=== PATIENT | female | born 1985 | race Caucasian/White ===

== ENCOUNTER → 2016-03-10 | Outpatient (REF) | payer OTHER, MEDICAID ==
[2016-03-10 11:35] LABS: BASO % 0.1 % (0.0-1.0); EOS % 1.1 % (0.0-3.0); LARGE UNSTAINED CELL # 0.1 K/mm3 (0.0-0.4); LARGE UNSTAINED CELL % 2.1 % (0.0-4.0); LYMPH # 1.2 K/mm3 (1.5-4.5); LYMPH % 25.8 % (24.0-44.0); MEAN CORPUSCULAR HEMOGLOBIN 31.2 pg (27.0-33.0); MEAN CORPUSCULAR HGB CONC 32.9 g/dl (32.0-36.5); MONO # 0.4 K/mm3 (0.0-0.8); MONO % 8.3 % (0.0-5.0); NEUTROPHILS # 2.9 K/mm3 (1.8-7.7); NEUTROPHILS % 62.6 % (36.0-66.0); PLATELET COUNT, AUTOMATED 204 k/mm3 (150-450); RED CELL DISTRIBUTION WIDTH 12.2 % (11.5-14.5); WHITE BLOOD COUNT 4.6 K/mm3 (4.0-10.0)
[2016-03-10 12:39] LABS: ERYTHROCYTE SEDIMENTATION RATE 8 mm/hr (0-20)
[2016-03-14 08:06] LABS: Lyme Disease IgG Ab 18 kDa Ban Absent (.); Lyme Disease IgG Ab 23 kDa Ban Present (.); Lyme Disease IgG Ab 28 kDa Ban Absent (.); Lyme Disease IgG Ab 30 kDa Ban Absent (.); Lyme Disease IgG Ab 39 kDa Ban Absent (.); Lyme Disease IgG Ab 41 kDa Ban Present (.); Lyme Disease IgG Ab 45 kDa Ban Absent (.); Lyme Disease IgG Ab 58 kDa Ban Absent (.); Lyme Disease IgG Ab 66 kDa Ban Absent (.); Lyme Disease IgG Ab 93 kDa Ban Absent (.); Lyme Disease IgG West Blot Int Negative (.); Lyme Disease IgG/IgM Antibodie 1.04 ISR (0.00-0.90); Lyme Disease IgM Ab 23 kDa Ban Present (.); Lyme Disease IgM Ab 39 kDa Ban Absent (.); Lyme Disease IgM Ab 41 kDa Ban Absent (.); Lyme Disease IgM Ab Quantitati <0.80 index (0.00-0.79); Lyme Disease IgM West Blot Int Negative (.)
== END ==
LOC: M LABDRAW1 11:09
PROVIDERS: ATTEND Orthopaedic Surgery
DX: M25.562 Pain in left knee (principal)

== ENCOUNTER → 2016-03-18 | Outpatient (CLI) | payer OTHER ==
--- NOTE | 2016-03-19 20:55 | REP ---
MRI of left knee 03/18/2016 Indication: Left knee pain for 2 months; exclude meniscal tear Comparison: None Technique: Sagittal, axial, coronal images were obtained of the left knee in multiple pulse sequences Findings: The medial and lateral patellar retinacula are intact. Small amount of focal chondromalacia patella is identified in the central aspect of the posterior patellar hyaline cartilage. The patellar and quadriceps tendons are intact. Anterior and posterior cruciate ligaments are intact. Medial and lateral collateral ligament complexes are intact. There are no visualized meniscal tears. There is no suprapatellar effusion, fracture or bone bruise. Impression 1. 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 2. No evidence of cruciate, medial or lateral collateral ligament tear. 3. No evidence of meniscal tear Signed by Grisel Souza MD 03/19/2016 08:47 P
== END ==
LOC: M RAD 11:20
PROVIDERS: ATTEND Orthopaedic Surgery
DX: M25.562 Pain in left knee (principal)

== ENCOUNTER → 2016-04-07 | Outpatient (REF) | payer OTHER | LOC: M SFHCPLAZ 10:48 | PROVIDERS: ATTEND Nurse Practitioner Family | DX: G40.B19 Juvenile myoclonic epilepsy, intractable, without status epilepticus (principal); E78.5 Hyperlipidemia, unspecified ==

== ENCOUNTER → 2016-04-10 | Outpatient (REF) | payer OTHER ==
[2016-04-10 12:38] LABS: BASO % 0.1 % (0.0-1.0); EOS % 0.4 % (0.0-3.0); LARGE UNSTAINED CELL # 0.1 K/mm3 (0.0-0.4); LARGE UNSTAINED CELL % 1.5 % (0.0-4.0); LYMPH # 1.1 K/mm3 (1.5-4.5); LYMPH % 26.3 % (24.0-44.0); MEAN CORPUSCULAR HEMOGLOBIN 31.5 pg (27.0-33.0); MEAN CORPUSCULAR HGB CONC 32.6 g/dl (32.0-36.5); MEAN CORPUSCULAR VOLUME 96.6 fl (80.0-96.0); MONO # 0.3 K/mm3 (0.0-0.8); MONO % 7.8 % (0.0-5.0); NEUTROPHILS # 2.4 K/mm3 (1.8-7.7); NEUTROPHILS % 63.9 % (36.0-66.0); PLATELET COUNT, AUTOMATED 192 k/mm3 (150-450); RED CELL DISTRIBUTION WIDTH 12.7 % (11.5-14.5); WHITE BLOOD COUNT 3.8 K/mm3 (4.0-10.0)
[2016-04-10 12:56] LABS: ALBUMIN 3.9 GM/DL (3.2-5.2); ALBUMIN/GLOBULIN RATIO 1.39 (1.00-1.93); ALKALINE PHOSPHATASE 106 U/L (45-117); ALT/SGPT 22 U/L (12-78); ANION GAP 8 MEQ/L (8-16); AST/SGOT 15 U/L (15-37); BILIRUBIN,TOTAL 0.3 MG/DL (0.2-1.0); BLOOD UREA NITROGEN 13 MG/DL (7-18); CALCIUM LEVEL 8.3 MG/DL (8.5-10.1); CARBON DIOXIDE LEVEL 25 MEQ/L (21-32); CHLORIDE LEVEL 111 MEQ/L (98-107); CHOLESTEROL LEVEL 333 MG/DL (<200); CREATININE FOR GFR 0.79 MG/DL (0.55-1.02); FREE T4 0.69 NG/DL (0.76-1.46); GLOMERULAR FILTRATION RATE > 60.0 (>60); GLUCOSE, FASTING 87 MG/DL (70-105); POTASSIUM SERUM 4.2 MEQ/L (3.5-5.1); SODIUM LEVEL 144 MEQ/L (136-145); TOTAL PROTEIN 6.7 GM/DL (6.4-8.2); TRIGLYCERIDES LEVEL 76 MG/DL (<150)
[2016-04-10 15:18] LABS: THYROID PEROXIDASE ANTIBODY < 28.0 U/ML (<60.0)
== END ==
LOC: M SFHCPLAZ 08:23
PROVIDERS: ATTEND Nurse Practitioner Family
DX: G40.B19 Juvenile myoclonic epilepsy, intractable, without status epilepticus (principal); E78.5 Hyperlipidemia, unspecified

== ENCOUNTER → 2016-05-18 | Outpatient (REF) | payer OTHER | LOC: M SFHCPLAZ 15:04 | PROVIDERS: ATTEND Nurse Practitioner Family | DX: R94.6 Abnormal results of thyroid function studies (principal); Z53.9 Procedure and treatment not carried out, unspecified reason ==

== ENCOUNTER → 2016-06-16 | Outpatient (REF) | payer OTHER ==
[2016-06-16 15:50] LABS: T UPTAKE 29 % (30-39); THYROID PEROXIDASE ANTIBODY < 28.0 U/ML (<60.0); THYROXINE (T4) 5.8 UG/DL (4.5-12.0)
== END ==
LOC: M SFHCPLAZ 13:58
PROVIDERS: ATTEND Nurse Practitioner Family
DX: R94.6 Abnormal results of thyroid function studies (principal)

== ENCOUNTER → 2016-07-18 | Outpatient (CLI) | payer OTHER ==
--- NOTE | 2016-07-18 12:06 | REP ---
Clinical: Abnormal thyroid function tests. Technique: Real time falcon scale and color evaluation using linear high frequency and curved array transducers. Findings: The thyroid gland is normal in contour, size, echogenicity, and shape. No significant nodule/mass or cystic changes are appreciated. Right lobe measures 4.4 x 1.6 x 1.2 cm. Left lobe measures 4.9 x 1.4 x 0.8 cm. Isthmus measures 1.3 mm in width. Impression: Normal thyroid ultrasound. Signed by Ignacio Cuellar MD 07/18/2016 11:58 A
== END ==
LOC: M RAD 10:58
PROVIDERS: ATTEND Nurse Practitioner Family
DX: R94.6 Abnormal results of thyroid function studies (principal)

== ENCOUNTER → 2016-10-27 | Outpatient (CLI) | payer OTHER ==
--- NOTE | 2016-10-27 12:14 | REP ---
LUMBAR SPINE COMPLETE: 10/27/2016. Comparison: two-view spine 08/05/2015. Clinical history: low back pain, sacral pain. Findings: Five views were provided. AP view shows pedicles, spinous and transverse processes intact. There is no scoliosis. SI joints, sacral ala and foramina symmetric. The lower thoracic vertebral levels and ribs included were unremarkable. That portion of the pelvic ring and iliac wings seen also unremarkable. The lateral view shows some loss of lordosis compared to the previous study, this may reflect some spasm. There is no spondylolysis or spondylolisthesis. There is no disc space narrowing or compression deformity at any level. Impression: 1. Some loss of lordosis noted that may reflect some spasm but no scoliosis, spondylolysis, spondylolisthesis, compression deformity or disc space narrowing. 2. SI joints symmetric and intact on this study. Signed by Sebastián Garcia MD 10/27/2016 05:18 P
--- NOTE | 2016-10-27 13:02 | REP ---
Sacrum and coccyx series: Three views. History: Sacral coccygeal disorders. Findings: Three views of the right sacrum and coccyx show no sacral abnormality. On lateral radiograph there is some kyphosis of the coccyx but this did not appear to be acute. Presacral soft tissues are not widened. SI joints are unremarkable. No bony destructive lesion is seen. Impression: No acute abnormality. Signed by Raz Lange MD 10/27/2016 01:56 P
== END ==
LOC: M RAD 11:22
PROVIDERS: ATTEND Nurse Practitioner Family
DX: M53.3 Sacrococcygeal disorders, not elsewhere classified (principal)

== ENCOUNTER → 2016-12-01 | Outpatient (CLI) | payer OTHER ==
--- NOTE | 2016-12-01 13:59 | REP ---
Renal ultrasound Center request: There are no comparisons. The kidneys are normal size. Right kidney measures 10.4 x 5.5 x 4.9 cm. Left kidney measures 9.9-6.0 x 5.2 cm. Renal cortical echogenicity is normal bilaterally. There is no hydronephrosis, calculus, mass or cyst on the right or left. Bladder ultrasound: The bladder is incompletely distended and cannot be further evaluated. Impression: Negative bilateral renal ultrasound. The bladder is nondistended and cannot be evaluated at this time. Signed by Jared Garay MD 12/01/2016 01:51 P
== END ==
LOC: M RAD 12:51
PROVIDERS: ATTEND Nurse Practitioner Family
DX: R35.0 Frequency of micturition (principal)

== ENCOUNTER → 2016-12-13 | Outpatient (REF) | payer OTHER | LOC: M LAB REF 16:10 | PROVIDERS: ATTEND Physician Assistant | DX: J30.9 Allergic rhinitis, unspecified (principal) ==

== ENCOUNTER → 2017-02-05 | Outpatient (REF) | payer OTHER ==
[2017-02-05 16:46] LABS: FREE T4 0.65 NG/DL (0.76-1.46)
[2017-02-06 11:38] LABS: CONTROL LINE MONO INT CTR LINE PRESENT
== END ==
LOC: M SFHCPLAZ 11:48
PROVIDERS: ATTEND Nurse Practitioner Family
DX: R53.83 Other fatigue (principal)

== ENCOUNTER → 2017-04-27 | Outpatient (CLI) | payer OTHER ==
[2017-05-02 00:06] LABS: CLOBAZAM 149 ng/mL (30-300); DESMETHYLCLOBAZAM 1185 ng/mL (300-3000)
== END ==
LOC: M WUC 08:56
DX: G40.219 Localization-related (focal) (partial) symptomatic epilepsy and epileptic syndromes with complex partial seizures, intractable, without status epilepticus (principal)
CPT/HCPCS: 80339

== ENCOUNTER → 2017-04-27 | Outpatient (CLI) | payer OTHER ==
[2017-05-01 00:06] LABS: TOPIRAMATE LEVEL 5.6 ug/mL (2.0-25.0)
== END ==
LOC: M WUC 08:51
DX: G40.909 Epilepsy, unspecified, not intractable, without status epilepticus (principal)
CPT/HCPCS: 80299

== ENCOUNTER → 2017-04-27 | Outpatient (CLI) | payer OTHER ==
[2017-04-27 14:17] LABS: HEMATOCRIT 42.4 % (36.0-47.0); HEMOGLOBIN 13.8 g/dl (12.0-16.0); MEAN CORPUSCULAR HEMOGLOBIN 30.5 pg (27.0-33.0); MEAN CORPUSCULAR HGB CONC 32.5 g/dl (32.0-36.5); MEAN CORPUSCULAR VOLUME 93.6 fl (80.0-96.0); PLATELET COUNT, AUTOMATED 252 10^3/uL (150-450); RED BLOOD COUNT 4.53 10^6/uL (4.00-5.40); RED CELL DISTRIBUTION WIDTH 12.4 % (11.5-14.5); WHITE BLOOD COUNT 5.6 10^3/uL (4.0-10.0)
[2017-04-27 14:24] LABS: ALBUMIN 3.7 GM/DL (3.2-5.2); ALBUMIN/GLOBULIN RATIO 1.09 (1.00-1.93); ALKALINE PHOSPHATASE 181 U/L (45-117); ALT/SGPT 20 U/L (12-78); ANION GAP 7 MEQ/L (8-16); AST/SGOT 15 U/L (7-37); BILIRUBIN,TOTAL 0.3 MG/DL (0.2-1.0); BLOOD UREA NITROGEN 10 MG/DL (7-18); CALCIUM LEVEL 8.7 MG/DL (8.5-10.1); CARBAMAZEPINE (TEGRETOL) LEVEL 8.7 UG/ML (4.0-10.0); CARBON DIOXIDE LEVEL 25 MEQ/L (21-32); CHLORIDE LEVEL 109 MEQ/L (98-107); CREATININE FOR GFR 0.69 MG/DL (0.55-1.30); GLOMERULAR FILTRATION RATE > 60.0 (>60); GLUCOSE, FASTING 78 MG/DL (70-100); POTASSIUM SERUM 4.2 MEQ/L (3.5-5.1); SODIUM LEVEL 141 MEQ/L (136-145); TOTAL PROTEIN 7.1 GM/DL (6.4-8.2)
== END ==
LOC: M WUC 08:45
DX: G40.109 Localization-related (focal) (partial) symptomatic epilepsy and epileptic syndromes with simple partial seizures, not intractable, without status epilepticus (principal)
CPT/HCPCS: 80156

== ENCOUNTER → 2017-06-26 | Outpatient (REF) | payer OTHER ==
[2017-06-26 12:16] LABS: BASO % 0.2 % (0.0-1.0); HEMATOCRIT 41.9 % (36.0-47.0); HEMOGLOBIN 13.5 g/dl (12.0-15.5); IMMATURE GRANULOCYTE % 0.6 % (0-3.0); LYMPH # 1.2 10^3/uL (1.5-4.5); LYMPH % 22.7 % (24.0-44.0); MEAN CORPUSCULAR HGB CONC 32.2 g/dl (32.0-36.5); MEAN CORPUSCULAR VOLUME 93.1 fl (80.0-96.0); MONO # 0.5 10^3/uL (0.0-0.8); MONO % 9.9 % (0.0-5.0); NEUTROPHILS # 3.5 10^3/uL (1.8-7.7); NEUTROPHILS % 66.6 % (36.0-66.0); PLATELET COUNT, AUTOMATED 254 10^3/uL (150-450); RED CELL DISTRIBUTION WIDTH 12.5 % (11.5-14.5); WHITE BLOOD COUNT 5.2 10^3/uL (4.0-10.0)
[2017-06-26 12:36] LABS: TOTAL 25(OH) VITAMIN D 16.7 NG/ML (30.0-100.0)
[2017-06-26 12:50] LABS: ERYTHROCYTE SEDIMENTATION RATE 22 mm/hr (0-20)
[2017-06-26 12:53] LABS: ALBUMIN 3.4 GM/DL (3.2-5.2); ALBUMIN/GLOBULIN RATIO 0.92 (1.00-1.93); ALKALINE PHOSPHATASE 176 U/L (45-117); ALT/SGPT 18 U/L (12-78); ANION GAP 6 MEQ/L (8-16); AST/SGOT 13 U/L (7-37); BILIRUBIN,TOTAL 0.3 MG/DL (0.2-1.0); BLOOD UREA NITROGEN 13 MG/DL (7-18); CALCIUM LEVEL 8.4 MG/DL (8.5-10.1); CARBON DIOXIDE LEVEL 25 MEQ/L (21-32); CHLORIDE LEVEL 110 MEQ/L (98-107); CREATININE FOR GFR 0.67 MG/DL (0.55-1.30); GLOMERULAR FILTRATION RATE > 60.0 (>60); GLUCOSE, FASTING 76 MG/DL (70-100); POTASSIUM SERUM 4.3 MEQ/L (3.5-5.1); RHEUMATOID FACTOR QUANT < 10.0 IU/ML (<15.0); SODIUM LEVEL 141 MEQ/L (136-145); TOTAL PROTEIN 7.1 GM/DL (6.4-8.2)
[2017-06-28 00:06] LABS: ANTINUCLEAR ANTIBODIES DIRECT Negative (Negative); TOPIRAMATE LEVEL 8.8 ug/mL (2.0-25.0)
== END ==
LOC: M LABNEURO 10:34
DX: R51 Headache (principal)
CPT/HCPCS: 84443

== ENCOUNTER 2017-07-16 12:52 | Emergency (ER) | payer OTHER ==
[2017-07-16] MEDS: NS 1,000 ML IV (14:45)
[2017-07-16 15:08] LABS: BASO % 0.1 % (0.0-1.0); HEMATOCRIT 40.5 % (36.0-47.0); HEMOGLOBIN 13.6 g/dl (12.0-15.5); IMMATURE GRANULOCYTE % 0.7 % (0-3.0); LYMPH # 1.1 10^3/uL (1.5-4.5); LYMPH % 10.5 % (24.0-44.0); MEAN CORPUSCULAR HEMOGLOBIN 31.3 pg (27.0-33.0); MEAN CORPUSCULAR HGB CONC 33.6 g/dl (32.0-36.5); MEAN CORPUSCULAR VOLUME 93.3 fl (80.0-96.0); MONO # 0.7 10^3/uL (0.0-0.8); NEUTROPHILS # 8.5 10^3/uL (1.8-7.7); NEUTROPHILS % 81.7 % (36.0-66.0); PLATELET COUNT, AUTOMATED 205 10^3/uL (150-450); RED BLOOD COUNT 4.34 10^6/uL (4.00-5.40); RED CELL DISTRIBUTION WIDTH 12.5 % (11.5-14.5); WHITE BLOOD COUNT 10.4 10^3/uL (4.0-10.0)
[2017-07-16] MEDS: ALBUTEROL SULFATE 2.5 MG/0.5 ML INH NEB SOLN NEB (15:25)
[2017-07-16 15:35] LABS: D-DIMER QUANT 483.2 ng/ml (<500)
[2017-07-16 15:37] LABS: LACTIC ACID SEPSIS PROTOCOL 0.5 MMOL/L (0.4-2.0)
[2017-07-16 15:39] LABS: ALBUMIN 3.4 GM/DL (3.2-5.2); ALBUMIN/GLOBULIN RATIO 0.85 (1.00-1.93); ALKALINE PHOSPHATASE 173 U/L (45-117); ALT/SGPT 23 U/L (12-78); ANION GAP 6 MEQ/L (8-16); AST/SGOT 14 U/L (7-37); BILIRUBIN,DIRECT < 0.1 MG/DL (0.0-0.2); BILIRUBIN,TOTAL 0.3 MG/DL (0.2-1.0); BLOOD UREA NITROGEN 11 MG/DL (7-18); CALCIUM LEVEL 8.2 MG/DL (8.5-10.1); CARBON DIOXIDE LEVEL 23 MEQ/L (21-32); CHLORIDE LEVEL 110 MEQ/L (98-107); CPK CREATINE PHOSPHOKINASE 77 U/L (26-192); CREATININE FOR GFR 0.72 MG/DL (0.55-1.30); GLOMERULAR FILTRATION RATE > 60.0 (>60); GLUCOSE, FASTING 86 MG/DL (70-100); POTASSIUM SERUM 3.4 MEQ/L (3.5-5.1); SODIUM LEVEL 139 MEQ/L (136-145); TOTAL PROTEIN 7.4 GM/DL (6.4-8.2); TROPONIN I < 0.02 NG/ML (< 0.10)
[2017-07-16 15:40] LABS: CK-MB VALUE MASS < 1.0 NG/ML (<3.6); MB/CK RELATIVE INDEX 1.29 (< OR =4); NT-PRO BNP 85 PG/ML (<125)
== END 2017-07-16 17:10 | disposition home or self-care (01) ==
LOC: M ED 12:52
DX: J03.90 Acute tonsillitis, unspecified (principal); G40.909 Epilepsy, unspecified, not intractable, without status epilepticus; Z88.8 Allergy status to other drugs, medicaments and biological substances; Z79.899 Other long term (current) drug therapy
CPT/HCPCS: 71046

== ENCOUNTER → 2017-08-13 | Outpatient (REF) | payer OTHER ==
[2017-08-13 17:42] LABS: ALBUMIN 3.6 GM/DL (3.2-5.2); ALBUMIN/GLOBULIN RATIO 1.06 (1.00-1.93); ALKALINE PHOSPHATASE 166 U/L (45-117); ALT/SGPT 23 U/L (12-78); ANION GAP 10 MEQ/L (8-16); AST/SGOT 13 U/L (7-37); BILIRUBIN,TOTAL 0.2 MG/DL (0.2-1.0); BLOOD UREA NITROGEN 11 MG/DL (7-18); CALCIUM LEVEL 8.1 MG/DL (8.5-10.1); CARBON DIOXIDE LEVEL 23 MEQ/L (21-32); CHLORIDE LEVEL 109 MEQ/L (98-107); CREATININE FOR GFR 0.75 MG/DL (0.55-1.30); FREE T4 0.56 NG/DL (0.76-1.46); GLOMERULAR FILTRATION RATE > 60.0 (>60); GLUCOSE, FASTING 98 MG/DL (70-100); POTASSIUM SERUM 3.6 MEQ/L (3.5-5.1); SODIUM LEVEL 142 MEQ/L (136-145)
[2017-08-13 18:22] LABS: BASO % 0.2 % (0.0-1.0); HEMATOCRIT 42.3 % (36.0-47.0); IMMATURE GRANULOCYTE % 0.9 % (0-3.0); LYMPH # 1.4 10^3/uL (1.5-4.5); LYMPH % 22.5 % (24.0-44.0); MEAN CORPUSCULAR HGB CONC 33.1 g/dl (32.0-36.5); MEAN CORPUSCULAR VOLUME 93.6 fl (80.0-96.0); MONO # 0.7 10^3/uL (0.0-0.8); MONO % 10.9 % (0.0-5.0); NEUTROPHILS # 4.2 10^3/uL (1.8-7.7); NEUTROPHILS % 65.5 % (36.0-66.0); PLATELET COUNT, AUTOMATED 263 10^3/uL (150-450); RED BLOOD COUNT 4.52 10^6/uL (4.00-5.40); RED CELL DISTRIBUTION WIDTH 12.7 % (11.5-14.5); WHITE BLOOD COUNT 6.4 10^3/uL (4.0-10.0)
[2017-08-17 00:07] LABS: Lyme Disease IgG Ab 18 kDa Ban Absent (.); Lyme Disease IgG Ab 23 kDa Ban Present (.); Lyme Disease IgG Ab 28 kDa Ban Absent (.); Lyme Disease IgG Ab 30 kDa Ban Absent (.); Lyme Disease IgG Ab 39 kDa Ban Absent (.); Lyme Disease IgG Ab 41 kDa Ban Present (.); Lyme Disease IgG Ab 45 kDa Ban Absent (.); Lyme Disease IgG Ab 58 kDa Ban Absent (.); Lyme Disease IgG Ab 66 kDa Ban Absent (.); Lyme Disease IgG Ab 93 kDa Ban Absent (.); Lyme Disease IgG West Blot Int Negative (.); Lyme Disease IgG/IgM Antibodie 1.23 ISR (0.00-0.90); Lyme Disease IgM Ab 23 kDa Ban Present (.); Lyme Disease IgM Ab 39 kDa Ban Absent (.); Lyme Disease IgM Ab 41 kDa Ban Absent (.); Lyme Disease IgM Ab Quantitati <0.80 index (0.00-0.79); Lyme Disease IgM West Blot Int Negative (.)
== END ==
LOC: M SFHCPLAZ 15:09
DX: R19.7 Diarrhea, unspecified (principal); R53.82 Chronic fatigue, unspecified

== ENCOUNTER → 2017-09-12 | Outpatient (CLI) | payer OTHER | LOC: M SLEEP HO 11:36 | DX: R53.82 Chronic fatigue, unspecified (principal) | CPT/HCPCS: G0399 ==

== ENCOUNTER → 2018-01-03 | Outpatient (REF) | payer OTHER ==
[2018-01-03 19:39] LABS: ALBUMIN 3.8 GM/DL (3.2-5.2); ALBUMIN/GLOBULIN RATIO 1.03 (1.00-1.93); ALKALINE PHOSPHATASE 200 U/L (45-117); ALT/SGPT 25 U/L (12-78); ANION GAP 12 MEQ/L (8-16); AST/SGOT 16 U/L (7-37); BILIRUBIN,TOTAL 0.2 MG/DL (0.2-1.0); BLOOD UREA NITROGEN 11 MG/DL (7-18); CALCIUM LEVEL 8.3 MG/DL (8.5-10.1); CARBON DIOXIDE LEVEL 23 MEQ/L (21-32); CHLORIDE LEVEL 106 MEQ/L (98-107); GLOMERULAR FILTRATION RATE > 60.0 (>60); GLUCOSE, FASTING 100 MG/DL (70-100); POTASSIUM SERUM 3.8 MEQ/L (3.5-5.1); SODIUM LEVEL 141 MEQ/L (136-145); TOTAL PROTEIN 7.5 GM/DL (6.4-8.2)
[2018-01-03 19:46] LABS: PTH INTACT 58.8 PG/ML (18.5-88.0); TOTAL 25(OH) VITAMIN D 12.6 NG/ML (30.0-100.0)
== END ==
LOC: M SFHCPLAZ 15:54
DX: E55.9 Vitamin D deficiency, unspecified (principal)
CPT/HCPCS: 80053

== ENCOUNTER → 2018-03-07 | Outpatient (REF) | payer OTHER ==
[~2018-03-07] MED LIST: AMOX875T PO; BENZ200C70 PO; MUCI600T37 PO; ONFI10TA PO; TEGR1TAB PO; TOPA100T12 PO; VENL150C43 PO; VENTAER IN; VITA50005
[2018-03-07 13:05] LABS: ALBUMIN 3.5 GM/DL (3.2-5.2); ALT/SGPT 21 U/L (12-78); BILIRUBIN,TOTAL 0.3 MG/DL (0.2-1.0); BLOOD UREA NITROGEN 11 MG/DL (7-18); CALCIUM LEVEL 8.3 MG/DL (8.5-10.1); CARBON DIOXIDE LEVEL 23 MEQ/L (21-32); CHLORIDE LEVEL 108 MEQ/L (98-107); CREATININE FOR GFR 0.74 MG/DL (0.55-1.30); GLOMERULAR FILTRATION RATE > 60.0 (>60); GLUCOSE, FASTING 107 MG/DL (70-100); POTASSIUM SERUM 3.8 MEQ/L (3.5-5.1); SODIUM LEVEL 141 MEQ/L (136-145)
[2018-03-07 13:13] LABS: TOTAL 25(OH) VITAMIN D 57.5 NG/ML (30.0-100.0)
[2018-03-07 13:14] LABS: PTH INTACT 73.6 PG/ML (18.5-88.0)
== END ==
LOC: M SFHCPLAZ 10:01
PROVIDERS: ATTEND Physician Assistant Medical
DX: E55.9 Vitamin D deficiency, unspecified (principal)

== ENCOUNTER 2018-05-01 11:00 | Outpatient (RCR) | payer OTHER | END 2018-05-02 | LOC: M PT 11:00 | PROVIDERS: ATTEND Physician Assistant Medical | DX: Z51.89 Encounter for other specified aftercare (principal); M25.562 Pain in left knee ==

== ENCOUNTER → 2018-07-18 | Outpatient (REF) | payer OTHER ==
[2018-07-18 15:07] LABS: CHLAMYDIA DNA AMPLIFICATION NEGATIVE (NEGATIVE); GC DNA AMPLIFICATION NEGATIVE (NEGATIVE)
[2018-07-20 15:51] LABS: HPV HYBRID CAPTURE II Negative (Negative)
== END ==
LOC: M SFHCWAGY 11:18
PROVIDERS: ATTEND Nurse Practitioner Family
DX: Z12.4 Encounter for screening for malignant neoplasm of cervix (principal)

== ENCOUNTER → 2018-09-13 | Outpatient (CLI) | payer OTHER ==
[2018-09-16 14:36] LABS: TOPIRAMATE LEVEL 7.8 ug/mL (2.0-25.0)
== END ==
LOC: M LAB 07:59
PROVIDERS: ATTEND Student in an Organized Health Care Education/Training Program
DX: G40.109 Localization-related (focal) (partial) symptomatic epilepsy and epileptic syndromes with simple partial seizures, not intractable, without status epilepticus (principal)

== ENCOUNTER → 2018-09-30 | Outpatient (CLI) | payer OTHER ==
[2018-10-04 00:06] LABS: CLOBAZAM 153 ng/mL (30-300); DESMETHYLCLOBAZAM 1986 ng/mL (300-3000)
== END ==
LOC: M LAB 06:30
PROVIDERS: ATTEND Student in an Organized Health Care Education/Training Program
DX: G40.909 Epilepsy, unspecified, not intractable, without status epilepticus (principal)
CPT/HCPCS: 36415; G0480

== ENCOUNTER → 2018-12-24 | Outpatient (REF) | payer OTHER ==
[2018-12-24 15:50] LABS: ALBUMIN 3.6 GM/DL (3.2-5.2); ALT/SGPT 22 U/L (12-78); BILIRUBIN,TOTAL 0.2 MG/DL (0.2-1.0); BLOOD UREA NITROGEN 14 MG/DL (7-18); CALCIUM LEVEL 8.6 MG/DL (8.5-10.1); CARBAMAZEPINE (TEGRETOL) LEVEL 10.6 UG/ML (4.0-10.0); CARBON DIOXIDE LEVEL 26 MEQ/L (21-32); CHLORIDE LEVEL 111 MEQ/L (98-107); CREATININE FOR GFR 0.85 MG/DL (0.55-1.30); GLOMERULAR FILTRATION RATE > 60.0 (>60); GLUCOSE, FASTING 74 MG/DL (70-100); POTASSIUM SERUM 3.9 MEQ/L (3.5-5.1); SODIUM LEVEL 142 MEQ/L (136-145); TOTAL PROTEIN 6.8 GM/DL (6.4-8.2)
[2018-12-24 16:01] LABS: PTH INTACT 55.8 PG/ML (18.5-88.0)
[2018-12-24 17:53] LABS: TOTAL 25(OH) VITAMIN D 22.6 NG/ML (30.0-100.0)
== END ==
LOC: M SFHCPLAZ 14:06
PROVIDERS: ATTEND Physician Assistant Medical
DX: E55.9 Vitamin D deficiency, unspecified (principal); G40.219 Localization-related (focal) (partial) symptomatic epilepsy and epileptic syndromes with complex partial seizures, intractable, without status epilepticus

== ENCOUNTER → 2019-03-18 | Outpatient (REF) | payer OTHER | LOC: M SFHCPLAZ 11:17 | PROVIDERS: ATTEND Physician Assistant Medical | DX: E55.9 Vitamin D deficiency, unspecified (principal); E66.9 Obesity, unspecified; F41.9 Anxiety disorder, unspecified; K21.9 Gastro-esophageal reflux disease without esophagitis ==

== ENCOUNTER → 2019-03-18 | Outpatient (CLI) | payer OTHER ==
--- NOTE | 2019-03-18 12:26 | REPPI ---
INDICATION: Degenerative disc disease PROCEDURE: Plain film lumbar spine includes AP, lateral and oblique views. COMPARISON STUDIES: 08/05/2015 FINDINGS: No evidence of malalignment or fracture. Vertebral heights and disc heights are preserved. Soft tissues appear unremarkable. No plain film evidence of significant canal or foraminal narrowing. CONCLUSION: No acute findings. Normal examination. Electronically Signed by Smooth Enamorado MD 03/18/2019 12:18 P
[2019-03-18 14:00] LABS: BASO % 0.2 % (0.0-1.0); HEMOGLOBIN 14.2 g/dl (12.0-15.5); LYMPH # 1.5 10^3/uL (1.5-5.0); LYMPH % 27.3 % (24.0-44.0); MEAN CORPUSCULAR HEMOGLOBIN 30.6 pg (27.0-33.0); MEAN CORPUSCULAR HGB CONC 32.3 g/dl (32.0-36.5); MEAN CORPUSCULAR VOLUME 94.8 fl (80.0-96.0); MONO # 0.5 10^3/uL (0.0-0.8); MONO % 9.6 % (0.0-5.0); NEUTROPHILS # 3.3 10^3/uL (1.5-8.5); NEUTROPHILS % 62.3 % (36.0-66.0); PLATELET COUNT, AUTOMATED 249 10^3/uL (150-450); RED BLOOD COUNT 4.64 10^6/uL (4.00-5.40); WHITE BLOOD COUNT 5.3 10^3/uL (4.0-10.0)
[2019-03-18 14:38] LABS: ALBUMIN 3.7 GM/DL (3.2-5.2); ALT/SGPT 22 U/L (12-78); BILIRUBIN,TOTAL 0.2 MG/DL (0.2-1.0); BLOOD UREA NITROGEN 11 MG/DL (7-18); CALCIUM LEVEL 8.3 MG/DL (8.5-10.1); CARBON DIOXIDE LEVEL 21 MEQ/L (21-32); CHLORIDE LEVEL 111 MEQ/L (98-107); CREATININE FOR GFR 0.76 MG/DL (0.55-1.30); FREE T4 0.57 NG/DL (0.76-1.46); GLOMERULAR FILTRATION RATE > 60.0 (>60); GLUCOSE, FASTING 100 MG/DL (70-100); POTASSIUM SERUM 3.8 MEQ/L (3.5-5.1); SODIUM LEVEL 140 MEQ/L (136-145); TOTAL PROTEIN 6.6 GM/DL (6.4-8.2)
[2019-03-18 14:39] LABS: TOTAL 25(OH) VITAMIN D 19.8 NG/ML (30.0-100.0)
[2019-03-18 14:40] LABS: PTH INTACT 52.8 PG/ML (18.5-88.0)
[2019-03-18 15:03] LABS: HEMOGLOBIN A1c 5.1 %
== END ==
LOC: M PLAIMG 11:22
PROVIDERS: ATTEND Physician Assistant Medical
DX: E55.9 Vitamin D deficiency, unspecified (principal); E66.9 Obesity, unspecified; K21.9 Gastro-esophageal reflux disease without esophagitis; F41.9 Anxiety disorder, unspecified; M51.36 Other intervertebral disc degeneration, lumbar region

== ENCOUNTER → 2019-07-21 | Outpatient (REF) | payer OTHER | LOC: M SFHCPLAZ 17:19 | PROVIDERS: ATTEND Physician Assistant Medical | DX: G40.219 Localization-related (focal) (partial) symptomatic epilepsy and epileptic syndromes with complex partial seizures, intractable, without status epilepticus (principal) ==

== ENCOUNTER → 2019-09-22 | Outpatient (CLI) | payer OTHER ==
[2019-09-22 08:54] LABS: HEMATOCRIT 39.8 % (36.0-47.0); HEMOGLOBIN 13.1 g/dl (12.0-15.5); LYMPH # 1.2 10^3/uL (1.5-5.0); LYMPH % 18.6 % (24.0-44.0); MEAN CORPUSCULAR HGB CONC 32.9 g/dl (32.0-36.5); MEAN CORPUSCULAR VOLUME 94.3 fl (80.0-96.0); MONO # 0.5 10^3/uL (0.0-0.8); MONO % 7.5 % (0.0-5.0); NEUTROPHILS # 4.6 10^3/uL (1.5-8.5); NEUTROPHILS % 73.4 % (36.0-66.0); PLATELET COUNT, AUTOMATED 206 10^3/uL (150-450); RED BLOOD COUNT 4.22 10^6/uL (4.00-5.40); WHITE BLOOD COUNT 6.2 10^3/uL (4.0-10.0)
[2019-09-22 09:18] LABS: C REACTIVE PROTEIN QUANTITATIV 0.38 MG/DL (0.00-0.30); RHEUMATOID FACTOR QUANT < 10.0 IU/ML (<15.0); URIC ACID 3.2 MG/DL (2.6-6.0)
[2019-09-22 09:29] LABS: ERYTHROCYTE SEDIMENTATION RATE 8 mm/hr (0-20)
[2019-09-23 17:09] LABS: ANTINUCLEAR ANTIBODIES DIRECT Negative (Negative); Lyme Disease IgG/IgM Antibodie <0.91 ISR (0.00-0.90); Lyme Disease IgM Ab Quantitati <0.80 index (0.00-0.79)
== END ==
LOC: M LAB 08:07
PROVIDERS: ATTEND Physician Assistant
DX: M51.36 Other intervertebral disc degeneration, lumbar region (principal)

== ENCOUNTER → 2019-10-20 | Outpatient (CLI) | payer OTHER | LOC: M RAD 09:12 | PROVIDERS: ATTEND Physician Assistant | DX: M51.26 Other intervertebral disc displacement, lumbar region (principal); M51.27 Other intervertebral disc displacement, lumbosacral region; M46.96 Unspecified inflammatory spondylopathy, lumbar region; M46.97 Unspecified inflammatory spondylopathy, lumbosacral region; M48.061 Spinal stenosis, lumbar region without neurogenic claudication; M51.36 Other intervertebral disc degeneration, lumbar region ==

== ENCOUNTER → 2020-01-26 | Outpatient (CLI) | payer OTHER ==
[2020-01-26 11:53] LABS: BASO % 0.1 % (0.0-1.0); HEMATOCRIT 41.3 % (36.0-47.0); HEMOGLOBIN 13.2 g/dl (12.0-15.5); LYMPH # 1.2 10^3/uL (1.5-5.0); LYMPH % 11.4 % (24.0-44.0); MEAN CORPUSCULAR HEMOGLOBIN 31.4 pg (27.0-33.0); MEAN CORPUSCULAR VOLUME 98.1 fl (80.0-96.0); MONO # 0.9 10^3/uL (0.0-0.8); MONO % 9.1 % (0.0-5.0); NEUTROPHILS % 78.9 % (36.0-66.0); PLATELET COUNT, AUTOMATED 235 10^3/uL (150-450); RED BLOOD COUNT 4.21 10^6/uL (4.00-5.40); WHITE BLOOD COUNT 10.1 10^3/uL (4.0-10.0)
[2020-01-26 12:22] LABS: ALBUMIN 3.5 GM/DL (3.2-5.2); ALT/SGPT 15 U/L (12-78); BILIRUBIN,TOTAL 0.2 MG/DL (0.2-1.0); BLOOD UREA NITROGEN 12 MG/DL (7-18); CARBAMAZEPINE (TEGRETOL) LEVEL 7.8 UG/ML (4.0-10.0); CARBON DIOXIDE LEVEL 25 MEQ/L (21-32); CHLORIDE LEVEL 109 MEQ/L (98-107); GLOMERULAR FILTRATION RATE > 60.0 (>60); GLUCOSE, FASTING 104 MG/DL (70-100); POTASSIUM SERUM 3.8 MEQ/L (3.5-5.1); SODIUM LEVEL 139 MEQ/L (136-145); TOTAL PROTEIN 6.9 GM/DL (6.4-8.2)
== END ==
LOC: M LAB 11:14
PROVIDERS: ATTEND Student in an Organized Health Care Education/Training Program
DX: G40.019 Localization-related (focal) (partial) idiopathic epilepsy and epileptic syndromes with seizures of localized onset, intractable, without status epilepticus (principal)
CPT/HCPCS: 36415; 80053; 80156; 85025; G0480

== ENCOUNTER → 2020-02-20 | Outpatient (REF) | payer OTHER | LOC: M SFHCRHEU 10:02 | PROVIDERS: ATTEND Internal Medicine | DX: E55.9 Vitamin D deficiency, unspecified (principal); R79.82 Elevated C-reactive protein (CRP); M54.5 Low back pain; M25.50 Pain in unspecified joint ==

== ENCOUNTER → 2020-02-23 | Outpatient (CLI) | payer OTHER ==
--- NOTE | 2020-02-23 13:42 | REP ---
INDICATION: LOW BACK PAIN XRAYS 1ST LAB 2ND COMPARISON: None. TECHNIQUE: Frontal view of the pelvis with neutral and frog lateral views of the right and left hips. FINDINGS: Osseous structures and joint spaces are intact and normal. Hip joints appear symmetric on frontal pelvic radiograph. No acute fracture dislocation. No evidence for healed injury. No significant degenerative or congenital abnormalities are appreciated. Surrounding soft tissues are unremarkable. IMPRESSION: Normal pelvis and bilateral hip series. <Electronically signed by Ignacio Cuellar > 02/23/20 [id number]
[2020-02-23 14:35] LABS: C REACTIVE PROTEIN QUANTITATIV 0.59 MG/DL (0.00-0.30)
[2020-02-23 14:45] LABS: TOTAL 25(OH) VITAMIN D 17.8 NG/ML (30.0-100.0)
== END ==
LOC: M LAB 13:03
PROVIDERS: ATTEND Internal Medicine
DX: E55.9 Vitamin D deficiency, unspecified (principal); M54.5 Low back pain; R79.82 Elevated C-reactive protein (CRP)

== ENCOUNTER → 2020-02-23 | Outpatient (CLI) | payer OTHER ==
[2020-02-23 14:12] LABS: HEMATOCRIT 41.6 % (36.0-47.0); HEMOGLOBIN 13.3 g/dl (12.0-15.5); LYMPH # 1.4 10^3/uL (1.5-5.0); MEAN CORPUSCULAR HEMOGLOBIN 31.4 pg (27.0-33.0); MEAN CORPUSCULAR VOLUME 98.3 fl (80.0-96.0); MONO # 0.6 10^3/uL (0.0-0.8); MONO % 11.9 % (0.0-5.0); NEUTROPHILS # 2.8 10^3/uL (1.5-8.5); NEUTROPHILS % 57.7 % (36.0-66.0); PLATELET COUNT, AUTOMATED 217 10^3/uL (150-450); RED BLOOD COUNT 4.23 10^6/uL (4.00-5.40); WHITE BLOOD COUNT 4.8 10^3/uL (4.0-10.0)
[2020-02-23 14:37] LABS: ALBUMIN 3.6 GM/DL (3.2-5.2); ALT/SGPT 19 U/L (12-78); BILIRUBIN,TOTAL 0.2 MG/DL (0.2-1.0); BLOOD UREA NITROGEN 15 MG/DL (7-18); CALCIUM LEVEL 8.2 MG/DL (8.5-10.1); CARBAMAZEPINE (TEGRETOL) LEVEL 7.3 UG/ML (4.0-10.0); CARBON DIOXIDE LEVEL 27 MEQ/L (21-32); CHLORIDE LEVEL 109 MEQ/L (98-107); CREATININE FOR GFR 0.79 MG/DL (0.55-1.30); GLOMERULAR FILTRATION RATE > 60.0 (>60); GLUCOSE, FASTING 88 MG/DL (70-100); POTASSIUM SERUM 3.8 MEQ/L (3.5-5.1); SODIUM LEVEL 142 MEQ/L (136-145); TOTAL PROTEIN 6.6 GM/DL (6.4-8.2)
[2020-02-28 15:06] LABS: CLOBAZAM 230 ng/mL (30-300); DESMETHYLCLOBAZAM 5478 ng/mL (300-3000)
== END ==
LOC: M LAB 13:11
PROVIDERS: ATTEND Student in an Organized Health Care Education/Training Program
DX: G40.019 Localization-related (focal) (partial) idiopathic epilepsy and epileptic syndromes with seizures of localized onset, intractable, without status epilepticus (principal)
CPT/HCPCS: 80053; 80156; 85025; G0480

== ENCOUNTER → 2020-03-26 | Outpatient (CLI) | payer OTHER ==
[2020-03-26 12:00] LABS: PLATELET COUNT, AUTOMATED 217 10^3/uL (150-450)
[2020-03-26 12:20] LABS: INR 1.01; PARTIAL THROMBOPLASTIN TIME 29.5 SECONDS (24.2-38.5); PROTHROMBIN TIME 13.5 SECONDS (12.5-14.3)
[2020-03-26 12:35] LABS: HCG, SERUM QUALITATIVE NEGATIVE (NEGATIVE)
== END ==
LOC: M LAB 11:06
PROVIDERS: ATTEND Physician Assistant
DX: M47.27 Other spondylosis with radiculopathy, lumbosacral region (principal)

== ENCOUNTER 2020-05-05 08:35 | Emergency (ER) | payer OTHER ==
[~2020-05-05] VITALS: Ht 172.7 cm; Wt 114.5 kg
[2020-05-05] MEDS ORDERED: [UNRECOGNIZED DRUG - CODE] (08:54)
[2020-05-05] MEDS ORDERED: MELO15TA28 PO (08:54)
--- NOTE | 2020-05-05 10:05 | REP ---
INDICATION: fall COMPARISON: 01/13/2006 TECHNIQUE: Axial noncontrast images from the skull base to the vertex with coronal reformations. This CT examination was performed using the following dose reduction techniques: Automated exposure control, adjustment of mA and/or kv according to the patient's size, and use of iterative reconstruction technique. FINDINGS: The ventricles, sulci, and cisterns are normal in position and appearance. Bernal-white differentiation is maintained. No acute intracranial hemorrhage, mass/mass effect, pathology or trauma/injury. No evidence for acute infarction. No extra-axial fluid collection. Calvarium is intact. Paranasal sinuses and mastoid air cells are clear. IMPRESSION: Normal noncontrast head CT. No evidence for acute intracranial pathology or trauma/injury. <Electronically signed by Ignacio Cuellar > 05/05/20 1005
--- NOTE | 2020-05-05 10:06 | REP ---
INDICATION: fall COMPARISON: None. TECHNIQUE: Axial noncontrast images from the skull base to the thoracic inlet with coronal and sagittal re-formations This CT examination was performed using the following dose reduction techniques: Automated exposure control, adjustment of mA and/or kv according to the patient's size, and use of iterative reconstruction technique. FINDINGS: Straightening of normal lordosis likely positional. Vertebral bodies are intact. No acute fracture/compression injury or subluxation. No significant degenerative changes are appreciated. Posterior elements and spinous processes are intact. Spinal canal is patent. Paravertebral soft tissues are normal. IMPRESSION: Normal noncontrast cervical spine CT. No evidence for acute pathology or trauma/injury. <Electronically signed by Ignacio Cuellar > 05/05/20 1002
--- NOTE | 2020-05-05 10:45 | REP ---
INDICATION: fall COMPARISON: None. TECHNIQUE: AP, lateral, and swimmers views. FINDINGS: Alignment and kyphosis is maintained. Vertebral bodies intact. No acute fracture / compression injury or subluxation. No degenerative changes. Paravertebral soft tissues are normal. IMPRESSION: Normal thoracic spine series. No evidence for acute fracture/compression injury or subluxation. <Electronically signed by Ignacio Cuellar > 05/05/20 1047
--- NOTE | 2020-05-05 10:46 | REP ---
INDICATION: fall COMPARISON: None. TECHNIQUE: AP, lateral, bilateral oblique views of the left elbow. FINDINGS: No acute fracture or dislocation is appreciated. Joint spaces and surrounding soft tissues appear normal. Lateral view demonstrates normal positioning to the anterior and posterior fat pads without evidence for effusion/hemarthrosis. No subcutaneous emphysema or foreign body identified. IMPRESSION: Normal elbow radiographs. No acute fracture or dislocation. <Electronically signed by Ignacio Cuellar > 05/05/20 1042
--- NOTE | 2020-05-05 10:46 | REP ---
INDICATION: fall COMPARISON: None. TECHNIQUE: AP, lateral, bilateral oblique, and coned-down views of the lumbar spine. FINDINGS: Alignment and lordosis maintained. Vertebral bodies are intact. Disc spaces are relatively normal/age-appropriate. No acute fracture/compression injury or subluxation. No obvious spondylolysis or spondylolisthesis.. IMPRESSION: Normal Lumbosacral Spine series. No evidence for acute fracture/compression injury or subluxation. <Electronically signed by Ignacio Cuellar > 05/05/20 1044
[2020-05-05 11:44] VITALS: BP 101/55
== END 2020-05-05 11:56 | disposition home or self-care (01) ==
LOC: M ED 08:35 → EDBD 08:35 → M ED 11:56
DX: S30.0XXA Contusion of lower back and pelvis, initial encounter (principal); S50.02XA Contusion of left elbow, initial encounter; S06.0X0A Concussion without loss of consciousness, initial encounter; W00.9XXA Unspecified fall due to ice and snow, initial encounter; Y92.89 Other specified places as the place of occurrence of the external cause; Y93.K1 Activity, walking an animal; Y99.0 Civilian activity done for income or pay; R56.9 Unspecified convulsions; Z79.899 Other long term (current) drug therapy; Z88.0 Allergy status to penicillin

== ENCOUNTER → 2020-06-02 | Outpatient (CLI) | payer OTHER ==
[~2020-06-02] MED LIST changes: +MELO15TA28 PO; +PROHANCE 279.3MG/ML 15ML VIAL As Ordered ONE; +PROHANCE 279.3MG/ML 5ML VIAL As Ordered ONE; +[UNRECOGNIZED DRUG - CODE]
--- NOTE | 2020-06-03 11:25 | REPVR ---
PROCEDURE INFORMATION: Exam: MR Lumbar Spine Without and With Contrast Exam date and time: 06/02/2020 4:28 PM Age: 34 years old Clinical indication: Low back pain; Patient HX: Per order, stenosis vs infection; Additional info: Dd L region TECHNIQUE: Imaging protocol: Multiplanar magnetic resonance images of the lumbar spine without and with intravenous contrast. Contrast material: PROHANCE; Contrast volume: 20 ml; Contrast route: INTRAVENOUS (IV); COMPARISON: MRI-Spine, L.S. without con 10/20/2019 9:32 AM FINDINGS: Vertebrae: There is no fracture or listhesis. Aside from scattered hemangiomas predominating at L3, marrow signal is within normal limits. Spinal cord: Normal signal. No cord compression. L1-L2: No significant disc disease. No significant spinal canal stenosis. No neural foraminal stenosis. L2-L3: There is shallow disc bulging. There is mild facet hypertrophy. The spinal canal and neural foramina are patent. L3-L4: There is shallow disc bulging. There is [id number] facet and ligamentous hypertrophy. The spinal canal and neural foramina are patent. L4-L5: There is shallow disc bulging. There is [id number] facet hypertrophy. The spinal canal and neural foramina are patent. L5-S1: There is shallow disc bulging. There is mild facet hypertrophy. The spinal canal and neural foramina are patent. Soft tissues: Unremarkable. IMPRESSION: Mild degenerative disc disease and spondylosis. No canal or neural foraminal compromise. Electronically signed by: Era Bills On 06/03/2020 11:25:37 AM
== END ==
LOC: M RAD 14:47
PROVIDERS: ATTEND Physician Assistant
DX: M51.37 Other intervertebral disc degeneration, lumbosacral region (principal); M47.816 Spondylosis without myelopathy or radiculopathy, lumbar region
CPT/HCPCS: 72158; A9576

== ENCOUNTER → 2020-06-22 | Outpatient (REF) | payer OTHER ==
[~2020-06-22] MED LIST changes: -PROHANCE 279.3MG/ML 15ML VIAL As Ordered ONE; -PROHANCE 279.3MG/ML 5ML VIAL As Ordered ONE
== END ==
LOC: M WUC 11:37
PROVIDERS: ATTEND Physician Assistant
DX: J02.9 Acute pharyngitis, unspecified (principal)

== ENCOUNTER → 2020-07-06 | Outpatient (CLI) | payer OTHER ==
[2020-07-06 17:21] LABS: BLOOD UREA NITROGEN 13 MG/DL (7-18); C REACTIVE PROTEIN QUANTITATIV 0.53 MG/DL (0.00-0.30); CREATININE FOR GFR 0.78 MG/DL (0.55-1.30); GLOMERULAR FILTRATION RATE > 60.0 (>60); RHEUMATOID FACTOR QUANT < 10.0 IU/ML (<15.0)
== END ==
LOC: M WUC 11:23
PROVIDERS: ATTEND Physician Assistant
DX: M47.27 Other spondylosis with radiculopathy, lumbosacral region (principal)

== ENCOUNTER → 2020-07-08 | Outpatient (REF) | payer OTHER | LOC: M SFHCWAGY 17:16 | PROVIDERS: ATTEND Nurse Practitioner Women's Health | DX: Z12.4 Encounter for screening for malignant neoplasm of cervix (principal) ==

== ENCOUNTER → 2020-07-09 | Outpatient (REF) | payer OTHER | LOC: M SFHCRHEU 12:59 | PROVIDERS: ATTEND Internal Medicine | DX: E55.9 Vitamin D deficiency, unspecified (principal); Z53.9 Procedure and treatment not carried out, unspecified reason ==

== ENCOUNTER → 2021-02-02 | Outpatient (REF) | payer OTHER | LOC: M LAB REF 16:40 | PROVIDERS: ATTEND Family Medicine | DX: R20.2 Paresthesia of skin (principal) ==

== ENCOUNTER → 2021-05-05 | Outpatient (REF) | payer OTHER | LOC: M LAB REF 12:29 | PROVIDERS: ATTEND Family Medicine | DX: R20.2 Paresthesia of skin (principal) ==

== ENCOUNTER → 2021-06-02 | Outpatient (CLI) | payer OTHER | LOC: M PLAIMG 12:48 | PROVIDERS: ATTEND Orthopaedic Surgery | DX: M94.261 Chondromalacia, right knee (principal); M25.561 Pain in right knee ==

== ENCOUNTER → 2021-07-19 | Outpatient (CLI) | payer OTHER, MEDICAID ==
[2021-07-19 12:47] LABS: RHEUMATOID FACTOR QUANT < 10.0 IU/ML (<15.0); TOTAL PROTEIN 6.7 GM/DL (6.4-8.2)
[2021-07-19 12:51] LABS: HEMOGLOBIN A1c 5.3 %
[2021-07-19 12:56] LABS: VITAMIN B12 LEVEL 188 PG/ML
== END ==
LOC: M WUC 08:49
PROVIDERS: ATTEND Psychiatry & Neurology Neurology
DX: G62.9 Polyneuropathy, unspecified (principal)

== ENCOUNTER → 2021-08-15 | Outpatient (CLI) | payer OTHER | LOC: M PAIN 09:00 | PROVIDERS: ATTEND Nurse Practitioner Family | DX: M79.671 Pain in right foot (principal); M79.672 Pain in left foot; G89.29 Other chronic pain; M79.2 Neuralgia and neuritis, unspecified; M54.50 Low back pain, unspecified; G40.909 Epilepsy, unspecified, not intractable, without status epilepticus; Z87.898 Personal history of other specified conditions; Z86.59 Personal history of other mental and behavioral disorders; Z88.8 Allergy status to other drugs, medicaments and biological substances; E66.01 Morbid (severe) obesity due to excess calories; Z68.41 Body mass index [BMI] 40.0-44.9, adult; Z79.899 Other long term (current) drug therapy ==

== ENCOUNTER → 2021-08-22 | Outpatient (CLI) | payer OTHER | LOC: M SLEEP HO 12:08 | PROVIDERS: ATTEND Nurse Practitioner Family | DX: R06.83 Snoring (principal); R40.0 Somnolence; G47.30 Sleep apnea, unspecified ==

== ENCOUNTER → 2021-09-19 | Outpatient (REF) | payer OTHER, MEDICAID ==
[2021-09-19 17:19] LABS: C REACTIVE PROTEIN QUANTITATIV < 0.30 MG/DL (0.00-0.30); RHEUMATOID FACTOR QUANT < 10.0 IU/ML (<15.0); URIC ACID 4.1 MG/DL (2.6-6.0)
== END ==
LOC: M LAB REF 16:14
PROVIDERS: ATTEND Family Medicine
DX: M25.561 Pain in right knee (principal)

== ENCOUNTER → 2021-10-11 | Outpatient (CLI) | payer OTHER | LOC: M PLAIMG 07:46 | PROVIDERS: ATTEND Podiatrist Foot Surgery | DX: M72.2 Plantar fascial fibromatosis (principal); M79.672 Pain in left foot; M79.671 Pain in right foot ==

== ENCOUNTER 2022-01-04 15:39 | Emergency (ER) | payer MEDICAID, OTHER ==
[~2022-01-04] VITALS: Ht 172.7 cm; Wt 121.6 kg
[2022-01-04 15:39] VITALS: BP 114/69
[2022-01-04] MEDS ORDERED: FLUO40CA (15:51)
[2022-01-04] MEDS ORDERED: FLUO20CA22 (15:51)
[2022-01-04] MEDS ORDERED: MIRA3350 (15:51)
[2022-01-04 16:31] LABS: HEMOGLOBIN 12.1 g/dl (12.0-15.5); MEAN CORPUSCULAR HEMOGLOBIN 27.9 pg (27.0-33.0); MEAN CORPUSCULAR VOLUME 89.9 fl (80.0-96.0); PLATELET COUNT, AUTOMATED 252 10^3/uL (150-450); RED BLOOD COUNT 4.34 10^6/uL (4.00-5.40); WHITE BLOOD COUNT 6.8 10^3/uL (4.0-10.0)
[2022-01-04 16:54] LABS: RSV AMPLIFICATION NEGATIVE (NEGATIVE)
[2022-01-04 17:07] LABS: HCG, SERUM QUALITATIVE NEGATIVE (NEGATIVE)
[2022-01-04 17:31] LABS: ACETAMINOPHEN LEVEL < 2.0 UG/ML (10.0-30.0); ALBUMIN 3.4 GM/DL (3.2-5.2); ALT/SGPT 20 U/L (12-78); BILIRUBIN,DIRECT < 0.1 MG/DL (0.0-0.2); BILIRUBIN,TOTAL 0.2 MG/DL (0.2-1.0); BLOOD UREA NITROGEN 15 MG/DL (7-18); CALCIUM LEVEL 8.4 MG/DL (8.5-10.1); CARBON DIOXIDE LEVEL 19 MEQ/L (21-32); CHLORIDE LEVEL 112 MEQ/L (98-107); CREATININE FOR GFR 0.82 MG/DL (0.55-1.30); ETHYL ALCOHOL (ETHANOL) < 0.003 % (0.000-0.010); GLOMERULAR FILTRATION RATE > 60.0 (>60); GLUCOSE, FASTING 99 MG/DL (70-100); POTASSIUM SERUM 4.1 MEQ/L (3.5-5.1); SALICYLATE LEVEL < 1.7 MG/DL (5.0-30.0); SODIUM LEVEL 140 MEQ/L (136-145); TOTAL PROTEIN 6.5 GM/DL (6.4-8.2)
== END 2022-01-04 19:32 | disposition home or self-care (01) ==
LOC: M ED 15:39
DX: F43.0 Acute stress reaction (principal); F32.A Depression, unspecified; Z88.8 Allergy status to other drugs, medicaments and biological substances; Z79.899 Other long term (current) drug therapy

== ENCOUNTER → 2022-04-12 | Outpatient (REF) | payer OTHER ==
[~2022-04-12] MED LIST changes: +FLUO20CA22; +FLUO40CA; +MIRA3350
== END ==
LOC: M PLALAB 11:59
PROVIDERS: ATTEND Advanced Practice Midwife
DX: R30.0 Dysuria (principal); N94.10 Unspecified dyspareunia; R10.2 Pelvic and perineal pain

== ENCOUNTER → 2022-06-27 | Outpatient (REF) | payer OTHER ==
[~2022-06-27] MED LIST changes: +AMOX875T2 PO
== END ==
LOC: M PLALAB 09:35
PROVIDERS: ATTEND Advanced Practice Midwife
DX: Z12.4 Encounter for screening for malignant neoplasm of cervix (principal)

== ENCOUNTER 2022-07-18 11:12 | Emergency (ER) | payer OTHER ==
[~2022-07-18] VITALS: Ht 172.7 cm; Wt 122.5 kg
[~2022-07-18 11:12] MED LIST changes: -AMOX875T2 PO
[2022-07-18] MEDS ORDERED: BOOSTRIX VACCINE (TETANUS/DIPHTH/ACEL. PERTUSSIS) 0.5ML SYR IM.IMMUN ONE (13:40)
[2022-07-18] MEDS ORDERED: AUGMENTIN 875 MG TAB PO ONE (13:40)
[2022-07-18] MEDS ORDERED: AMOX875T2 PO (14:45)
[2022-07-18 14:57] VITALS: BP 109/72
== END 2022-07-18 15:00 | disposition home or self-care (01) ==
LOC: M ED 11:12
DX: S61.250A Open bite of right index finger without damage to nail, initial encounter (principal); S63.501A Unspecified sprain of right wrist, initial encounter; W50.3XXA Accidental bite by another person, initial encounter; Y99.0 Civilian activity done for income or pay; Z79.899 Other long term (current) drug therapy; Z88.8 Allergy status to other drugs, medicaments and biological substances

== ENCOUNTER → 2022-07-28 | Outpatient (REF) | payer OTHER ==
[~2022-07-28] MED LIST changes: +AMOX875T2 PO
[2022-07-28 12:24] LABS: ALBUMIN 3.5 G/DL (3.2-5.2); BLOOD UREA NITROGEN 13 MG/DL (9-23); CALCIUM LEVEL 7.9 MG/DL (8.5-10.1); CARBON DIOXIDE LEVEL 25 MMOL/L (20-31); CHLORIDE LEVEL 109 MMOL/L (98-107); CREATININE FOR GFR 0.82 MG/DL (0.55-1.30); GLOMERULAR FILTRATION RATE > 60.0 (>60); GLUCOSE, FASTING 128 MG/DL (60-100); PHOSPHORUS LEVEL 2.7 MG/DL (2.5-4.9); POTASSIUM SERUM 3.9 MMOL/L (3.5-5.1); SODIUM LEVEL 142 MMOL/L (136-145)
== END ==
LOC: M LABWUC 11:25
PROVIDERS: ATTEND Physician Assistant
DX: U07.1 COVID-19 (principal)

== ENCOUNTER → 2022-08-23 | Outpatient (CLI) | payer OTHER | LOC: M WHC 09:22 | PROVIDERS: ATTEND Advanced Practice Midwife | DX: N92.0 Excessive and frequent menstruation with regular cycle (principal) ==

== ENCOUNTER 2022-09-04 09:23 | Inpatient (IN) | payer MEDICAID, OTHER ==
[~2022-09-04] VITALS: Ht 172.7 cm; Wt 120.5 kg
[~2022-09-04 09:23] MED LIST changes: -FLUO20CA22; +FLUO20CA22 PO; -FLUO40CA; +FLUO40CA PO; -MIRA3350; +MIRA3350 PO; -VITA50005; +VITA50005 PO; -[UNRECOGNIZED DRUG - CODE]; +[UNRECOGNIZED DRUG - CODE] PO
[2022-09-04 10:14] LABS: HEMATOCRIT 40.7 % (36.0-47.0); HEMOGLOBIN 12.4 g/dl (12.0-15.5); MEAN CORPUSCULAR HEMOGLOBIN 25.8 pg (27.0-33.0); MEAN CORPUSCULAR HGB CONC 30.5 g/dl (32.0-36.5); MEAN CORPUSCULAR VOLUME 84.6 fl (80.0-96.0); PLATELET COUNT, AUTOMATED 232 10^3/uL (150-450); RED BLOOD COUNT 4.81 10^6/uL (4.00-5.40); WHITE BLOOD COUNT 5.6 10^3/uL (4.0-10.0)
[2022-09-04 10:36] LABS: ETHYL ALCOHOL (ETHANOL) < 0.003 % (0.000-0.010)
[2022-09-04 10:37] LABS: ACETAMINOPHEN LEVEL < 2.0 UG/ML (10.0-20.0); SALICYLATE LEVEL < 3.0 MG/DL (<30)
[2022-09-04 10:38] LABS: ALBUMIN 3.7 G/DL (3.2-5.2); ALKALINE PHOSPHATASE 171 U/L (46-116); ALT/SGPT 17 U/L (7.0-40); AST/SGOT < 8 U/L (<34); BILIRUBIN,DIRECT < 0.1 MG/DL (<0.4); BILIRUBIN,TOTAL 0.2 MG/DL (0.3-1.2); BLOOD UREA NITROGEN 16 MG/DL (9-23); CALCIUM LEVEL 8.2 MG/DL (8.5-10.1); CARBON DIOXIDE LEVEL 20 MMOL/L (20-31); CHLORIDE LEVEL 110 MMOL/L (98-107); CREATININE FOR GFR 0.74 MG/DL (0.55-1.30); GLOMERULAR FILTRATION RATE > 60.0 (>60); GLUCOSE, FASTING 106 MG/DL (60-100); HCG, SERUM QUALITATIVE NEGATIVE (NEGATIVE); POTASSIUM SERUM 3.9 MMOL/L (3.5-5.1); SODIUM LEVEL 139 MMOL/L (136-145); TOTAL PROTEIN 6.5 G/DL (5.7-8.2)
[2022-09-04 10:40] LABS: THYROID STIMULATING HORMONE 2.049 uIU/ML (0.55-4.78)
[2022-09-04 10:42] LABS: AMPHETAMINES LEVEL URINE NEGATIVE (NEGATIVE); BARBITURATES URINE NEGATIVE (NEGATIVE); CANNABINOIDS URINE NEGATIVE (NEGATIVE); COCAINE METABOLITE URINE NEGATIVE (NEGATIVE); METHADONE URINE NEGATIVE (NEGATIVE); OPIATES URINE NEGATIVE (NEGATIVE); PHENCYCLIDINE URINE NEGATIVE (NEGATIVE)
[2022-09-04 10:50] LABS: BENZODIAZEPINES URINE POSITIVE (NEGATIVE)
[2022-09-04] MEDS ORDERED: MED REC IN PROGRESS XX SCH (11:10)
[2022-09-04] MEDS ORDERED: CELE1CAP9 PO (11:40)
[2022-09-04] MEDS ORDERED: TOPA200T7 PO (11:40)
[2022-09-04] MEDS ORDERED: CLOB20TA13 PO (11:40)
[2022-09-04] MEDS ORDERED: HOME MED LIST COMPLETE! XX SCH (11:50)
[2022-09-04] MEDS ORDERED: MIRALAX *UNIT DOSE* 17GM PACKET PO PRN (15:10)
[2022-09-04] MEDS ORDERED: MAALOX 30 ML SUSP *UDC PO PRN (15:10)
[2022-09-04] MEDS ORDERED: MOM 30ML SUSPENSION UDC PO PRN (15:10)
[2022-09-04] MEDS ORDERED: ACETAMINOPHEN TAB 650MG DOSE (2X325MG) PO PRN (15:10)
[2022-09-04] MEDS ORDERED: IBUPROFEN 400MG TAB PO PRN (15:10)
[2022-09-04] MEDS ORDERED: traZODone 50 MG TAB PO PRN (15:10)
[2022-09-04] MEDS ORDERED: diphenhydrAMINE 25MG CAP PO PRN (15:10)
[2022-09-04 17:16] VITALS: BP 116/74; TEMP 97.5; O2SAT 99
[2022-09-04] MEDS ORDERED: XCOPRI PO SCH (21:00)
[2022-09-04] MEDS: TOPIRAMATE (TopAMAX) 100 MG TAB PO SCH (21:27)
[2022-09-04] MEDS: XCOPRI PO SCH (21:28)
[2022-09-05 06:29] VITALS: BP 102/58; TEMP 96.5; O2SAT 100
[2022-09-05] MEDS: TOPIRAMATE (TopAMAX) 100 MG TAB PO SCH ×2 (09:10→20:56)
[2022-09-05] MEDS: FLUoxetine 20MG CAP PO SCH ×2 (09:11)
[2022-09-05] MEDS: CelecoXIB (CeleBREX) 100 MG CAP PO SCH (09:11)
[2022-09-05 17:28] VITALS: BP 118/64; TEMP 96.9; O2SAT 96
[2022-09-05] MEDS: XCOPRI PO SCH (20:56)
[2022-09-06 06:08] VITALS: BP 113/56; TEMP 97.8; O2SAT 100
[2022-09-06] MEDS: FLUoxetine 20MG CAP PO SCH ×2 (08:40→08:41)
[2022-09-06] MEDS: CelecoXIB (CeleBREX) 100 MG CAP PO SCH (08:41)
[2022-09-06] MEDS: TOPIRAMATE (TopAMAX) 100 MG TAB PO SCH ×2 (08:42→20:09)
[2022-09-06 17:06] VITALS: BP 125/67; TEMP 97.6; O2SAT 98
[2022-09-06] MEDS: XCOPRI PO SCH (20:08)
[2022-09-07 06:25] VITALS: BP 109/54; TEMP 98; O2SAT 96
[2022-09-07] MEDS: TOPIRAMATE (TopAMAX) 100 MG TAB PO SCH ×2 (08:29→20:01)
[2022-09-07] MEDS: CelecoXIB (CeleBREX) 100 MG CAP PO SCH (08:29)
[2022-09-07] MEDS: FLUoxetine 20MG CAP PO SCH ×2 (08:32)
[2022-09-07 18:36] VITALS: BP 105/60; TEMP 97.8; O2SAT 99
[2022-09-07] MEDS ORDERED: FLUO40CA PO (19:38)
[2022-09-07] MEDS ORDERED: FLUO20CA22 PO (19:38)
[2022-09-07] MEDS ORDERED: CELE1CAP9 PO (19:38)
[2022-09-07] MEDS: XCOPRI PO SCH (20:02)
[2022-09-08 06:02] VITALS: BP 117/58; TEMP 97.3; O2SAT 98
[2022-09-08] MEDS: CelecoXIB (CeleBREX) 100 MG CAP PO SCH (08:35)
[2022-09-08] MEDS: FLUoxetine 20MG CAP PO SCH ×2 (08:36→08:37)
[2022-09-08] MEDS: TOPIRAMATE (TopAMAX) 100 MG TAB PO SCH (08:37)
== END 2022-09-08 11:05 | disposition home or self-care (01) | DRG 751 ==
LOC: M ED 09:23 → M ED INP 15:06 → M PSY 15:06
PROVIDERS: ADMIT Student in an Organized Health Care Education/Training Program; ATTEND Student in an Organized Health Care Education/Training Program
DX: F32.1 Major depressive disorder, single episode, moderate (principal); F41.9 Anxiety disorder, unspecified; Z79.899 Other long term (current) drug therapy

== ENCOUNTER → 2022-11-14 | Outpatient (REF) | payer OTHER ==
[~2022-11-14] MED LIST changes: +CELE0.09 PO; +CLOB20TA13 PO; +TOPA200T7 PO
[2022-11-14 13:18] LABS: PERCENT SATURATION 6.5 % (13.2-45.0)
[2022-11-14 13:21] LABS: FERRITIN 5.1 NG/ML (7.3-270.7)
[2022-11-17 21:10] LABS: % LABILE ALKALINE PHOSPHATASE 62.8 %
== END ==
LOC: M LAB REF 11:50
PROVIDERS: ATTEND Internal Medicine
DX: R20.2 Paresthesia of skin (principal); E53.8 Deficiency of other specified B group vitamins

== ENCOUNTER 2023-04-10 10:45 | Emergency (ER) | payer OTHER ==
[~2023-04-10] VITALS: Ht 172.7 cm; Wt 120.0 kg
[2023-04-10 10:45] VITALS: TEMP 97.5
[2023-04-10 12:09] LABS: BASO % 0.6 % (0.0-1.0); EOS # 0.2 10^3/uL (0.0-0.5); EOS % 3.8 % (0.0-3.0); HEMATOCRIT 41.1 % (36.0-47.0); HEMOGLOBIN 12.5 g/dl (12.0-15.5); LYMPH # 1.5 10^3/uL (1.5-5.0); LYMPH % 28.8 % (24.0-44.0); MEAN CORPUSCULAR HGB CONC 30.4 g/dl (32.0-36.5); MEAN CORPUSCULAR VOLUME 88.8 fl (80.0-96.0); MONO # 0.5 10^3/uL (0.0-0.8); NEUTROPHILS % 56.4 % (36.0-66.0); PLATELET COUNT, AUTOMATED 258 10^3/uL (150-450); RED BLOOD COUNT 4.63 10^6/uL (4.00-5.40); WHITE BLOOD COUNT 5.3 10^3/uL (4.0-10.0)
[2023-04-10 12:37] LABS: ERYTHROCYTE SEDIMENTATION RATE 42 mm/hr (0-20)
[2023-04-10] MEDS: ONDANSETRON 4MG 2ML VIAL IV ONE (13:33)
[2023-04-10] MEDS: KETOROLAC 30 MG/ML 1ML VIAL IV ONE (13:34)
[2023-04-10] MEDS: NS 1,000 ML IV ONE (13:34)
[2023-04-10 15:12] VITALS: BP 114/72; O2SAT 99
[2023-04-10 21:14] LABS: HCG, SERUM QUANTITATIVE < 2.6 MIU/ML (<4.2)
== END 2023-04-10 15:13 | disposition home or self-care (01) ==
LOC: M ED 10:45
DX: G43.909 Migraine, unspecified, not intractable, without status migrainosus (principal); K21.9 Gastro-esophageal reflux disease without esophagitis; F41.9 Anxiety disorder, unspecified; F32.A Depression, unspecified; G40.909 Epilepsy, unspecified, not intractable, without status epilepticus; G47.33 Obstructive sleep apnea (adult) (pediatric); Z79.1 Long term (current) use of non-steroidal anti-inflammatories (NSAID); Z79.811 Long term (current) use of aromatase inhibitors; Z79.899 Other long term (current) drug therapy
CPT/HCPCS: 80047; 83735; 84702; 85025; 85652; 86140; 96374; 96375; 99284; J1885; J2405

== ENCOUNTER 2023-04-12 10:23 | Emergency (ER) | payer OTHER ==
[~2023-04-12] VITALS: Ht 172.7 cm; Wt 124.4 kg
[2023-04-12] MEDS ORDERED: LEVOTAB10 (10:42)
[2023-04-12] MEDS ORDERED: FREM225A (10:42)
[2023-04-12] MEDS ORDERED: FLUO20CA22 PO (10:42)
[2023-04-12] MEDS ORDERED: PANT40TA29 (10:42)
[2023-04-12 12:00] LABS: BASO % 0.4 % (0.0-1.0); EOS # 0.2 10^3/uL (0.0-0.5); EOS % 3.5 % (0.0-3.0); HEMATOCRIT 40.8 % (36.0-47.0); HEMOGLOBIN 12.3 g/dl (12.0-15.5); LYMPH # 1.1 10^3/uL (1.5-5.0); LYMPH % 23.4 % (24.0-44.0); MEAN CORPUSCULAR HEMOGLOBIN 26.7 pg (27.0-33.0); MEAN CORPUSCULAR HGB CONC 30.1 g/dl (32.0-36.5); MEAN CORPUSCULAR VOLUME 88.5 fl (80.0-96.0); MONO # 0.4 10^3/uL (0.0-0.8); MONO % 8.8 % (2.0-8.0); NEUTROPHILS # 3.1 10^3/uL (1.5-8.5); NEUTROPHILS % 63.5 % (36.0-66.0); PLATELET COUNT, AUTOMATED 245 10^3/uL (150-450); RED BLOOD COUNT 4.61 10^6/uL (4.00-5.40); WHITE BLOOD COUNT 4.9 10^3/uL (4.0-10.0)
[2023-04-12 12:18] LABS: ERYTHROCYTE SEDIMENTATION RATE 35 mm/hr (0-20)
[2023-04-12 12:27] LABS: MAGNESIUM LEVEL 1.9 MG/DL (1.8-2.4)
[2023-04-12] MEDS: NS 1,000 ML IV ONE (12:43)
[2023-04-12] MEDS: ACETAMINOPHEN *IV* 1,000 MG in IV 1 EA IV ONE (12:43)
[2023-04-12] MEDS: METOCLOPRAMIDE INJ 10MG/2ML VIAL IV ONE (12:44)
[2023-04-12] MEDS: KETOROLAC 30 MG/ML 1ML VIAL IV ONE (12:44)
[2023-04-12 12:45] LABS: HCG, SERUM QUALITATIVE NEGATIVE (NEGATIVE)
[2023-04-12] MEDS ORDERED: RIZA10TA64 PO (14:32)
[2023-04-12 14:43] VITALS: BP 121/66; TEMP 97.9; O2SAT 98
== END 2023-04-12 14:49 | disposition home or self-care (01) ==
LOC: M ED 10:23
DX: G43.909 Migraine, unspecified, not intractable, without status migrainosus (principal); G40.909 Epilepsy, unspecified, not intractable, without status epilepticus; Z88.8 Allergy status to other drugs, medicaments and biological substances; Z79.1 Long term (current) use of non-steroidal anti-inflammatories (NSAID); Z79.899 Other long term (current) drug therapy
CPT/HCPCS: 70450; 80047; 83735; 84702; 84703; 85025; 85652; 86140; 96365; 96366; 96375; 99284; J0131; J1100; J1885; J2765

== ENCOUNTER → 2023-04-23 | Outpatient (REF) | payer OTHER ==
[~2023-04-23] MED LIST changes: +FREM225A; +LEVOTAB10; +PANT40TA29; +RIZA10TA64 PO
== END ==
LOC: M LAB REF 12:06
PROVIDERS: ATTEND Family Medicine
DX: R20.2 Paresthesia of skin (principal); E53.8 Deficiency of other specified B group vitamins

== ENCOUNTER 2023-06-15 11:55 | Emergency (ER) | payer OTHER ==
[~2023-06-15] VITALS: Ht 172.7 cm; Wt 126.1 kg
[2023-06-15 11:55] VITALS: BP 112/55; TEMP 98.2; O2SAT 98
[~2023-06-15 11:55] MED LIST changes: -CLOB20TA13 PO; +CLOB20TA3 PO
== END 2023-06-15 16:51 | disposition home or self-care (01) ==
LOC: M ED 11:55
DX: S82.61XA Displaced fracture of lateral malleolus of right fibula, initial encounter for closed fracture (principal); X50.1XXA Overexertion from prolonged static or awkward postures, initial encounter; Y92.009 Unspecified place in unspecified non-institutional (private) residence as the place of occurrence of the external cause; Y93.9 Activity, unspecified; Y99.9 Unspecified external cause status; K21.9 Gastro-esophageal reflux disease without esophagitis; Z79.899 Other long term (current) drug therapy; Z88.8 Allergy status to other drugs, medicaments and biological substances

== ENCOUNTER → 2023-07-19 | Outpatient (CLI) | payer OTHER | LOC: M SOG 07:52 | PROVIDERS: ATTEND Physician Assistant | DX: M25.571 Pain in right ankle and joints of right foot (principal) ==

== ENCOUNTER → 2023-08-29 | Outpatient (CLI) | payer OTHER ==
[~2023-08-29] MED LIST changes: +FLUO-365 PO; -FLUO20CA22 PO
== END ==
LOC: M SOG 07:52
PROVIDERS: ATTEND Physician Assistant
DX: M25.571 Pain in right ankle and joints of right foot (principal)

== ENCOUNTER → 2023-09-10 | Outpatient (CLI) | payer OTHER | LOC: M SOG 07:53 | PROVIDERS: ATTEND Orthopaedic Surgery | DX: Z53.9 Procedure and treatment not carried out, unspecified reason (principal) ==

== ENCOUNTER → 2023-09-11 | Outpatient (CLI) | payer OTHER | LOC: M SOG 08:00 | PROVIDERS: ATTEND Orthopaedic Surgery | DX: M47.816 Spondylosis without myelopathy or radiculopathy, lumbar region (principal); M54.50 Low back pain, unspecified ==

== ENCOUNTER → 2023-10-31 | Outpatient (CLI) | payer OTHER | LOC: M SOG 07:49 | PROVIDERS: ATTEND Physician Assistant | DX: M25.571 Pain in right ankle and joints of right foot (principal); R93.7 Abnormal findings on diagnostic imaging of other parts of musculoskeletal system ==

== ENCOUNTER → 2023-11-14 | Outpatient (REF) | LOC: M PLAIMG 09:45 | PROVIDERS: ATTEND Internal Medicine | DX: M47.896 Other spondylosis, lumbar region (principal) ==

== ENCOUNTER → 2023-11-21 | Outpatient (REF) | payer OTHER | LOC: M LAB REF 12:29 | PROVIDERS: ATTEND Family Medicine | DX: R20.2 Paresthesia of skin (principal); E53.8 Deficiency of other specified B group vitamins ==

== ENCOUNTER 2023-11-26 19:30 | Inpatient (IN) | payer MEDICAID, OTHER ==
[~2023-11-26] VITALS: Ht 175.3 cm; Wt 127.1 kg
[~2023-11-26 19:30] MED LIST changes: -PANT40TA29; +PANT40TA29 PO
[2023-11-26 20:35] LABS: BASO % 0.3 % (0.0-1.0); EOS # 0.1 10^3/uL (0.0-0.5); EOS % 1.7 % (0.0-3.0); HEMATOCRIT 38.1 % (36.0-47.0); HEMOGLOBIN 11.6 g/dl (12.0-15.5); LYMPH # 1.7 10^3/uL (1.5-5.0); LYMPH % 22.7 % (24.0-44.0); MEAN CORPUSCULAR HEMOGLOBIN 24.8 pg (27.0-33.0); MEAN CORPUSCULAR HGB CONC 30.4 g/dl (32.0-36.5); MEAN CORPUSCULAR VOLUME 81.4 fl (80.0-96.0); MONO # 0.7 10^3/uL (0.0-0.8); MONO % 8.7 % (2.0-8.0); NEUTROPHILS # 4.9 10^3/uL (1.5-8.5); NEUTROPHILS % 65.9 % (36.0-66.0); PLATELET COUNT, AUTOMATED 282 10^3/uL (150-450); RED BLOOD COUNT 4.68 10^6/uL (4.00-5.40); WHITE BLOOD COUNT 7.5 10^3/uL (4.0-10.0)
[2023-11-26 20:55] LABS: ETHYL ALCOHOL (ETHANOL) 0.003 % (0.000-0.010)
[2023-11-26 20:56] LABS: CPK CREATINE PHOSPHOKINASE 60 U/L (34-145); SALICYLATE LEVEL < 3.0 MG/DL (<30)
[2023-11-26 20:57] LABS: ALBUMIN 3.3 G/DL (3.2-5.2); ALKALINE PHOSPHATASE 178 U/L (46-116); ALT/SGPT 15 U/L (7.0-40); AST/SGOT 11 U/L (<34); BILIRUBIN,DIRECT < 0.1 MG/DL (<0.4); BILIRUBIN,TOTAL 0.2 MG/DL (0.3-1.2); BLOOD UREA NITROGEN 14 MG/DL (9-23); CALCIUM LEVEL 8.3 MG/DL (8.5-10.1); CARBON DIOXIDE LEVEL 20 MMOL/L (20-31); CHLORIDE LEVEL 111 MMOL/L (98-107); CREATININE FOR GFR 0.78 MG/DL (0.55-1.30); GLOMERULAR FILTRATION RATE > 60.0 (>60); GLUCOSE, FASTING 113 MG/DL (60-100); HCG, SERUM QUALITATIVE NEGATIVE (NEGATIVE); POTASSIUM SERUM 3.9 MMOL/L (3.5-5.1); SODIUM LEVEL 140 MMOL/L (136-145); TOTAL PROTEIN 6.7 G/DL (5.7-8.2)
[2023-11-26 20:59] LABS: THYROID STIMULATING HORMONE 2.817 uIU/ML (0.55-4.78)
[2023-11-26] MEDS: IBUPROFEN 600MG TAB PO ONE (21:20)
[2023-11-26] MEDS ORDERED: EZET10TA21 PO (21:45)
[2023-11-26] MEDS ORDERED: CYCL5TAB PO (21:45)
[2023-11-26] MEDS ORDERED: DRIS50003 PO (21:45)
[2023-11-26] MEDS ORDERED: ZOLO100T PO (21:45)
[2023-11-26] MEDS ORDERED: HOME MED LIST COMPLETE! XX SCH (21:50)
[2023-11-26 23:35] LABS: AMPHETAMINES LEVEL URINE NEGATIVE (NEGATIVE); BARBITURATES URINE NEGATIVE (NEGATIVE); CANNABINOIDS URINE NEGATIVE (NEGATIVE); COCAINE METABOLITE URINE NEGATIVE (NEGATIVE); METHADONE URINE NEGATIVE (NEGATIVE); OPIATES URINE NEGATIVE (NEGATIVE); PHENCYCLIDINE URINE NEGATIVE (NEGATIVE)
[2023-11-26 23:46] LABS: BENZODIAZEPINES URINE POSITIVE (NEGATIVE)
[2023-11-27] MEDS ORDERED: IBUPROFEN 400MG TAB PO PRN (00:20)
[2023-11-27] MEDS ORDERED: MOM 30ML SUSPENSION UDC PO PRN (00:20)
[2023-11-27] MEDS ORDERED: traZODone 50 MG TAB PO PRN (00:20)
[2023-11-27] MEDS ORDERED: MAALOX 30 ML SUSP *UDC PO PRN (00:20)
[2023-11-27] MEDS ORDERED: diphenhydrAMINE 25MG CAP PO PRN (00:20)
[2023-11-27 02:52] VITALS: BP 130/78; TEMP 97; O2SAT 99
[2023-11-27] MEDS ORDERED: CYCLOBENZAPRINE 5MG TABLET PO PRN (08:20)
[2023-11-27] MEDS: TOPIRAMATE (TopAMAX) 100 MG TAB PO SCH (09:00)
[2023-11-27] MEDS: SERTRALINE 100 MG TAB PO SCH (09:00)
[2023-11-27] MEDS: UNRESOLVED PATIENT OWN MED ORDER XX SCH (09:00)
[2023-11-27] MEDS: PANTOPRAZOLE 40MG TAB (PROTONIX) PO SCH (09:25)
[2023-11-27 15:31] VITALS: BP 108/65; TEMP 97.9; O2SAT 100
[2023-11-27] MEDS ORDERED: DUPI300P SQ (16:26)
[2023-11-27] MEDS ORDERED: HOME MED LIST COMPLETE! XX SCH (16:30)
[2023-11-27] MEDS: XCOPRI PO SCH (20:16)
[2023-11-27] MEDS: LIDOCAINE 5% (LIDODERM) PATCH TD SCH (20:17)
[2023-11-27] MEDS: EZETIMIBE 10MG TABLET (ZETIA) PO SCH (20:17)
[2023-11-27] MEDS: TOPAMAX 100 MG PO SCH (20:17)
[2023-11-27] MEDS ORDERED: ENTER DRUG NAME HERE (PATIENT'S OWN MED) PO SCH (21:00)
[2023-11-28 06:16] VITALS: BP 141/90; TEMP 98.7; O2SAT 97
[2023-11-28] MEDS: SERTRALINE HCL 50 MG TAB PO ONE (09:40)
[2023-11-28] MEDS: ACETAMINOPHEN TAB 650MG DOSE (2X325MG) PO PRN (09:42)
[2023-11-28] MEDS: DUPIXENT 300 MG/2 ML SC SCH (10:39)
[2023-11-28 15:36] VITALS: BP 112/59; TEMP 97.6; O2SAT 98
[2023-11-28] MEDS: LIDOCAINE 5% (LIDODERM) PATCH TD SCH (21:08)
[2023-11-29 06:15] VITALS: BP 125/67; TEMP 97.3; O2SAT 99
[2023-11-29] MEDS: SERTRALINE 100 MG TAB PO SCH (08:36)
[2023-11-29] MEDS: PILL CUTTER 1 EACH XX PRN (08:36)
[2023-11-29] MEDS ORDERED: ZOLO100T PO (10:21)
[2023-11-29 15:20] VITALS: BP 125/58; TEMP 97.4; O2SAT 97
[2023-11-29] MEDS: RIZATRIPTAN BENZOATE 10 MG TAB PO ONE (18:52)
[2023-11-30] MEDS: VITAMIN D 50,000 UNITS CAPSULE (ERGOCALCIFEROL 1.25MG) PO SCH (08:52)
== END 2023-11-30 10:53 | disposition home or self-care (01) | DRG 751 ==
LOC: M ED 19:30 → M ED INP 11-27 00:20 → M PSY 11-27 01:44
PROVIDERS: ADMIT Psychiatry & Neurology Psychiatry; ATTEND Psychiatry & Neurology Psychiatry
DX: F33.9 Major depressive disorder, recurrent, unspecified (principal); G40.909 Epilepsy, unspecified, not intractable, without status epilepticus; R45.851 Suicidal ideations; G43.909 Migraine, unspecified, not intractable, without status migrainosus; Z88.8 Allergy status to other drugs, medicaments and biological substances; Z79.899 Other long term (current) drug therapy; E78.5 Hyperlipidemia, unspecified; I10 Essential (primary) hypertension

== ENCOUNTER → 2023-12-13 | Outpatient (REF) | payer MEDICAID, OTHER ==
[~2023-12-13] MED LIST changes: +CYCL5TAB PO; +DRIS50003 PO; +DUPI300P SQ; +EZET10TA21 PO; +ZOLO100T PO
== END ==
LOC: M LAB REF 16:36
PROVIDERS: ATTEND Family Medicine
DX: D64.9 Anemia, unspecified (principal)

== ENCOUNTER → 2024-01-01 | Outpatient (CLI) | payer OTHER | LOC: M SOG 07:21 | PROVIDERS: ATTEND Physician Assistant | DX: M25.571 Pain in right ankle and joints of right foot (principal); R93.6 Abnormal findings on diagnostic imaging of limbs ==

== ENCOUNTER → 2024-01-14 | Outpatient (CLI) | payer OTHER ==
[~2024-01-14] MED LIST changes: -CYCL5TAB PO; +CYCL5TAB4 PO
== END ==
LOC: M WHC 07:07
PROVIDERS: ATTEND Family Medicine
DX: R74.8 Abnormal levels of other serum enzymes (principal); R16.0 Hepatomegaly, not elsewhere classified; K76.0 Fatty (change of) liver, not elsewhere classified

== ENCOUNTER → 2024-01-18 | Outpatient (CLI) | payer OTHER ==
[2024-01-18 12:10] LABS: BASO % 0.3 % (0.0-1.0); EOS # 0.1 10^3/uL (0.0-0.5); EOS % 1.5 % (0.0-3.0); HEMATOCRIT 38.4 % (36.0-47.0); HEMOGLOBIN 11.5 g/dl (12.0-15.5); LYMPH # 1.3 10^3/uL (1.5-5.0); LYMPH % 17.8 % (24.0-44.0); MEAN CORPUSCULAR HGB CONC 29.9 g/dl (32.0-36.5); MEAN CORPUSCULAR VOLUME 83.5 fl (80.0-96.0); MONO # 0.6 10^3/uL (0.0-0.8); MONO % 8.4 % (2.0-8.0); NEUTROPHILS # 5.3 10^3/uL (1.5-8.5); NEUTROPHILS % 71.2 % (36.0-66.0); PLATELET COUNT, AUTOMATED 268 10^3/uL (150-450); WHITE BLOOD COUNT 7.5 10^3/uL (4.0-10.0)
[2024-01-18 12:31] LABS: ALBUMIN 3.2 G/DL (3.2-5.2); ALKALINE PHOSPHATASE 186 U/L (35-104); ALT/SGPT 13 U/L (7.0-40); AST/SGOT 9 U/L (<34); BILIRUBIN,TOTAL 0.2 MG/DL (0.3-1.2); BLOOD UREA NITROGEN 9 MG/DL (9-23); CALCIUM LEVEL 8.5 MG/DL (8.5-10.1); CARBON DIOXIDE LEVEL 24 MMOL/L (20-31); CHLORIDE LEVEL 109 MMOL/L (98-107); CREATININE FOR GFR 0.89 MG/DL (0.55-1.30); GLOMERULAR FILTRATION RATE > 60.0 (>60); GLUCOSE, FASTING 80 MG/DL (60-100); POTASSIUM SERUM 3.9 MMOL/L (3.5-5.1); SODIUM LEVEL 140 MMOL/L (136-145); TOTAL PROTEIN 6.5 G/DL (5.7-8.2)
== END ==
LOC: M LAB 09:53
PROVIDERS: ATTEND Student in an Organized Health Care Education/Training Program
DX: G40.019 Localization-related (focal) (partial) idiopathic epilepsy and epileptic syndromes with seizures of localized onset, intractable, without status epilepticus (principal)

== ENCOUNTER → 2024-04-09 | Outpatient (CLI) | payer OTHER ==
[2024-04-09 19:19] LABS: FREE T4 0.9 NG/DL (0.89-1.76); THYROID STIMULATING HORMONE 1.627 uIU/ML (0.55-4.78)
[2024-04-09 19:20] LABS: FOLLICLE STIMULATING HORMONE 6.4 mIU/ML; PROLACTIN 13.43 NG/ML
[2024-04-09 19:21] LABS: LUTEINIZING HORMONE 7.3 mIU/ML
[2024-04-09 19:23] LABS: ESTRADIOL 110.6 PG/ML
[2024-04-09 19:26] LABS: PROGESTERONE 0.25 NG/ML
== END ==
LOC: M PLALAB 15:08
PROVIDERS: ATTEND Nurse Practitioner Family
DX: R23.2 Flushing (principal)

== ENCOUNTER → 2024-05-13 | Outpatient (CLI) | payer OTHER | LOC: M SOG 07:50 | PROVIDERS: ATTEND Physician Assistant | DX: S82.831A Other fracture of upper and lower end of right fibula, initial encounter for closed fracture (principal); Y93.9 Activity, unspecified; Y92.9 Unspecified place or not applicable ==

== ENCOUNTER → 2024-05-13 | Outpatient (CLI) | payer OTHER | LOC: M SOG 13:52 | PROVIDERS: ATTEND Physician Assistant | DX: M25.571 Pain in right ankle and joints of right foot (principal); S82.491A Other fracture of shaft of right fibula, initial encounter for closed fracture; X58.XXXA Exposure to other specified factors, initial encounter; Y92.9 Unspecified place or not applicable; Y93.9 Activity, unspecified; Y99.9 Unspecified external cause status ==

== ENCOUNTER → 2024-06-02 | Outpatient (RCR) | payer OTHER | LOC: M PT 07:33 | PROVIDERS: ATTEND Physician Assistant | DX: S82.64XG Nondisplaced fracture of lateral malleolus of right fibula, subsequent encounter for closed fracture with delayed healing (principal) ==

== ENCOUNTER → 2024-06-09 | Outpatient (CLI) | payer OTHER | LOC: M SOG 09:43 | PROVIDERS: ATTEND Physician Assistant | DX: M25.561 Pain in right knee (principal); M25.562 Pain in left knee ==

== ENCOUNTER → 2024-06-16 | Outpatient (REF) | payer OTHER | LOC: M LAB REF 12:07 | PROVIDERS: ATTEND Family Medicine | DX: D64.9 Anemia, unspecified (principal) ==

== ENCOUNTER 2024-07-01 11:20 | Outpatient (RCR) | payer OTHER | END 2024-07-02 | LOC: M PT 11:20 | PROVIDERS: ATTEND Physician Assistant | DX: S82.64XG Nondisplaced fracture of lateral malleolus of right fibula, subsequent encounter for closed fracture with delayed healing (principal) ==

== ENCOUNTER → 2024-07-15 | Outpatient (CLI) | payer OTHER | LOC: M PLAIMG 09:47 | DX: C40.1 Malignant neoplasm of short bones of upper limb (principal) ==

== ENCOUNTER → 2024-11-12 | Outpatient (REF) | payer OTHER ==
[~2024-11-12] MED LIST changes: -EZET10TA21 PO; +EZET10TA57 PO
[2024-11-14 14:52] LABS: HPV APTIMA Not Detected (Not Detected)
== END ==
LOC: M PLALAB 09:04
PROVIDERS: ATTEND Advanced Practice Midwife
DX: Z12.4 Encounter for screening for malignant neoplasm of cervix (principal)

== ENCOUNTER → 2024-12-09 | Outpatient (REF) | payer OTHER ==
[2024-12-09 18:59] LABS: IRON (FE) 25.0 UG/DL (50-170); PERCENT SATURATION 8.3 % (13.2-45.0)
== END ==
LOC: M LAB REF 17:19
PROVIDERS: ATTEND Family Medicine
DX: D64.9 Anemia, unspecified (principal)

== ENCOUNTER → 2024-12-18 | Outpatient (REF) | payer OTHER | LOC: M LAB REF 16:55 | PROVIDERS: ATTEND Physician Assistant | DX: B34.9 Viral infection, unspecified (principal) ==

== ENCOUNTER → 2024-12-25 | Outpatient (REF) | payer OTHER | LOC: M LAB REF 12:16 | PROVIDERS: ATTEND Student in an Organized Health Care Education/Training Program | DX: R30.0 Dysuria (principal) ==

== ENCOUNTER → 2025-02-19 | Outpatient (REF) | payer OTHER ==
[2025-02-19 14:38] LABS: IRON (FE) 16.0 UG/DL (50-170); PERCENT SATURATION 5.0 % (13.2-45.0)
[2025-02-19 14:40] LABS: VITAMIN B12 LEVEL 241.0 PG/ML (211-911)
== END ==
LOC: M LAB REF 14:11
DX: D64.9 Anemia, unspecified (principal)